=== PATIENT | male | born 1990 | race Two or more races ===

== ENCOUNTER → 2024-10-30 | Outpatient (CLI) | payer OTHER, SELFPAY ==
[2024-10-30 08:59] LABS: Alanine Aminotransferase 27 U/L (10-49); Albumin/Globulin Ratio 2.2 (1.2-2.2); Alkaline Phosphatase 88 U/L (46-116); Anion Gap 9 (7-16); Aspartate Amino Transferase 17 U/L (0-34); BUN/Creatinine Ratio 18 Ratio (12-20); Bilirubin,Total 1.1 mg/dL (0.3-1.2); Blood Urea Nitrogen 18 mg/dL (9-23); Calcium 9.6 mg/dL (8.3-10.6); Calcium (Corrected) 9.6 mg/dL (8.5-10.1); Carbon Dioxide 30.6 mMol/L (20.0-31.0); Chloride 99 mMol/L (98-107); Globulin 2.3 gm/dL (2.3-3.5); Glucose 94 mg/dL (74-106); Osmolality,Calculated 279 (275-295); Potassium 3.9 mMol/L (3.4-5.1); Sodium 139 mMol/L (136-145); Total Protein 7.3 gm/dL (5.7-8.2); eGFR > 60 See Note
== END | disposition home or self-care (01) ==
LOC: COPL 07:45
PROVIDERS: PCP Internal Medicine; Referring Provider Orthopaedic Surgery; Visit Provider Orthopaedic Surgery
DX: Z01.89 Encounter for other specified special examinations (principal); Z79.1 Long term (current) use of non-steroidal anti-inflammatories (NSAID)
CPT/HCPCS: 36415; 80053

== ENCOUNTER → 2025-03-13 | Outpatient (CLI) | payer OTHER, SELFPAY ==
--- NOTE | 2025-03-13 08:00 | XR_ITS ---
Exam: MRI knee without contrast, left Date and time of exam: March 13, 2025 0758 hours INDICATIONS: Knee pain 6 months, diagnosis chondromalacia patella Technique: Multiple axial, coronal, and sagittal sections on the knee have been obtained. T2-Weighted sagittal, fat-suppressed images, TR 3,500, TE 62, T2 weighted coronal fat-saturated images, TR 3,500, TE 62 Proton density sagittal sections, TR 1800, TE 31. T-1 weighted coronal images, TR 524, TE 13.0 Findings: Medial meniscus anterior horn intact. Medial meniscus, body is intact. Posterior horn medial meniscus small peripheral horizontal linear tears sagittal image 5. Lateral meniscus anterior horn is intact Lateral meniscus, body is intact Posterior horn lateral meniscus is intact Anterior cruciate ligament appears intact. Posterior cruciate ligament appears intact. Knee effusion is minimal. Quadriceps and patellar tendons appear intact. There is no evidence of tendinosis. Inflammatory change or fracture of Hoffa's fat pad is not seen. Medial patellar facet demonstrates mild thinning. Lateral patellar facet cartilage demonstrates mild thinning. Trochlear cartilage demonstrates mild thinning. Marrow signal adequate. Medial collateral ligament appears intact. No meniscocapsular separation is seen. Illiotibial band and fibular collateral ligament are intact. Biceps femoris tendons appear intact. Medial femoral condylar articular cartilage demonstrates no thinning. Lateral femoral condylar articular cartilage demonstratesno thinning. Tibial plateau cartilage demonstrates no thinning. Impression: Small horizontal peripheral linear tear posterior horn medial meniscus Mild thinning cartilage patellofemoral facets
--- NOTE | 2025-03-13 08:30 | XR_ITS ---
MRI shoulder, left, without contrast. Date and time: March 13, 2025 0818 hours INDICATIONS: Injury to the shoulder post surgical repair March 18, 2024, persistent pain instability joint clicking Technique: Multiple axial, sagittal and coronal sections of the shoulder have been obtained. Siemens high-resolution 1.5 Lois MRI scanner is utilized. Axial fat-suppressed sections, TR 2350, TE 18 T2-weighted coronal fat-saturated images, TR 3500, TE 7100 T1-weighted coronal images, TR 500, TE 15 T2-weighted sagittal fat-saturated images, TR 3500, TE 57 T1-weighted sagittal sections, TR 504, TE 13. Findings: Supraspinatus tendon insertion is intact. Infraspinatus tendon insertion is intact. Subscapularis insertion is intact. Subscapularis bursa is not seen. Long head of the biceps is in the bicipital groove. No definite tear of the biceps superior labral anchor is seen. Retraction of the musculotendinous junction of the rotator cuff is not seen . Tendinosis pattern is moderate. Distance between the acromium and humeral head is 7 mm Atrophy of the supraspinatus muscle is mild . Atrophy of the infraspinatus muscle is mild. Sagittal sections demonstrate a horizontal acromion. Acromioclavicular joint demonstrates no significant arthritic change. Osacromiale is not identified. Labral margins appear intact. Bony glenoid fossa on the sagittal sections does not demonstrate osseous defect. Occult fracture or area of avascular necrosis is not seen. Acromioclavicular joint separation is not visible. Defect in the posterolateral margin of the humeral head is not seen Impression: Rotator cuff intact Labral margins appear intact
== END | disposition home or self-care (01) ==
LOC: SMRI 07:40
PROVIDERS: Referring Provider Orthopaedic Surgery; Visit Provider Orthopaedic Surgery
DX: M25.862 Other specified joint disorders, left knee (principal); S83.242A Other tear of medial meniscus, current injury, left knee, initial encounter; S49.92XA Unspecified injury of left shoulder and upper arm, initial encounter; X58.XXXA Exposure to other specified factors, initial encounter; G89.29 Other chronic pain
CPT/HCPCS: 73221; 73721